=== PATIENT | male | born 1985 | race Caucasian/White ===

== ENCOUNTER 2025-06-16 00:05 | Emergency (ER) | payer SELFPAY ==
[~2025-06-16] VITALS: Ht 167.6 cm; Wt 79.0 kg
[2025-06-16 00:16] VITALS: O2SAT 100
[2025-06-16] MEDS: METOCLOPRAMIDE HCL 10MG/2ML VIAL IV ONE (00:46)
[2025-06-16] MEDS: HYDRALAZINE 20MG/ML VIAL IV ONE (00:46)
[2025-06-16] MEDS: ACETAMINOPHEN 325MG TABLET PO ONE (00:47)
[2025-06-16] MEDS: MORPHINE SULFATE 4 MG/ML INJ (FOR IV/IM USE) IV ONE (00:47)
[2025-06-16 01:37] LABS: BASOPHILS % 0.2 % (0.0-2.0); EOSINOPHILS % 2.9 % (0.0-5.0); HEMATOCRIT. 49.0 % (42.0-52.0); HEMOGLOBIN. 17.0 g/dL (14.0-18.0); LYMPHOCYTES % 19.2 % (20.0-50.0); MEAN PLATELET VOLUME 8.3 fl (7.4-10.4); MONOCYTES % 7.1 % (2.0-8.0); NEUTROPHILS % 70.6 % (40.0-76.0); PLATELET 317 x1000/uL (130-400); RED BLOOD CELL COUNT 5.46 mill/uL (4.7-6.1); RED CELL DISTRIBUTION WIDTH 12.6 % (11.6-14.6)
[2025-06-16 01:52] LABS: CREATININE 1.0 mg/dL (0.6-1.3); UREA NITROGEN BLOOD 9 mg/dL (9-23)
[2025-06-16 01:53] LABS: ASPARTATE AMINOTRANSFERASE 31 IU/L (<34)
[2025-06-16 01:54] LABS: BILIRUBIN DIRECT 0.1 mg/dL (<=3.0); BILIRUBIN TOTAL 0.6 mg/dL (0.1-1.0); PROTEIN TOTAL 7.4 g/dL (6.0-8.3)
[2025-06-16 02:04] LABS: INR 0.9
[2025-06-16 02:05] LABS: TROPONIN I HIGH SENSITIVITY 144 ng/L (3.0-53)
[2025-06-16] MEDS: IOHEXOL-350 100 ML BOTTLE ONE (02:06)
[2025-06-16 02:55] LABS: *AMPHETAMINES SCREEN URINE NEGATIVE (NEGATIVE); *BARBITURATES SCREEN URINE NEGATIVE (NEGATIVE); *BENZODIAZEPINES SCREEN URINE NEGATIVE (NEGATIVE); *COCAINE SCREEN URINE NEGATIVE (NEGATIVE); CANNABINOID URINE SCREEN NEGATIVE (NEGATIVE); ECSTASY MDMA SCREEN URINE NEGATIVE (NEGATIVE); METHADONE URINE SCREEN NEGATIVE (NEGATIVE); OPIATES URINE SCREEN PRESUMPTIVE POSITIVE (NEGATIVE); PHENCYCLIDINE URINE SCREEN NEGATIVE (NEGATIVE)
[2025-06-16] MEDS ORDERED: AMLO5TAB88 MT (03:40)
[2025-06-16] MEDS ORDERED: ACET-2708 MT (03:40)
[2025-06-16] MEDS ORDERED: AMOX1TAB16 MT (03:40)
[2025-06-16] MEDS: AMLODIPINE 5MG TABLET PO ONE (03:49)
[2025-06-16 03:51] VITALS: BP 159/115; PULSE 89; RESP 17; TEMP 37.1; O2SAT 98
== END 2025-06-16 04:04 | disposition home or self-care (01) ==
LOC: ER 00:58 → CMPBEDREQ 07:55
DX: R51.9 Headache, unspecified (principal); I10 Essential (primary) hypertension; K04.7 Periapical abscess without sinus; Z86.79 Personal history of other diseases of the circulatory system; Z79.01 Long term (current) use of anticoagulants; Z79.899 Other long term (current) drug therapy; Z88.6 Allergy status to analgesic agent
CPT/HCPCS: 80076; 80305; 80048; 80320; 83880; 85025; 85610; 85730; 84484; 36415; 71045; 70496; 70498; 70450; 93005; 96374; 96375; 99285; Q9967; J0360; J2765; J2270; Z7610 ×2; A4606; G0480